=== PATIENT | male | born 1970 | race Caucasian/White ===

== ENCOUNTER 2022-03-03 09:55 | Outpatient (CLI) | payer BC, SELFPAY ==
[2022-03-03 11:35] LABS: Cholesterol* 205 mg/dL (90-199); Glucose* 110 mg/dL (60-115)
[2022-03-03 11:36] LABS: HDL Cholesterol* 37 mg/dL (>=40); LDL Cholesterol Calculated 143 mg/dL (<100); Triglycerides* 124 mg/dL (40-149)
== END 2022-03-03 09:56 | disposition home or self-care (01) ==
PROVIDERS: PCP Family Medicine; Visit Provider Family Medicine
DX: Z13.6 Encounter for screening for cardiovascular disorders (principal); Z13.1 Encounter for screening for diabetes mellitus
CPT/HCPCS: 80061; 82947

== ENCOUNTER 2023-03-04 08:10 | Outpatient (CLI) | payer BC, SELFPAY | END 2023-03-04 08:11 | disposition home or self-care (01) | LOC: NFLDREF 03-05 09:03 | PROVIDERS: PCP Family Medicine; Referring Provider Family Medicine; Visit Provider Family Medicine | DX: Z00.00 Encounter for general adult medical examination without abnormal findings (principal); E78.5 Hyperlipidemia, unspecified | CPT/HCPCS: 80053; 80061 ==

== ENCOUNTER 2024-03-03 08:09 | Outpatient (CLI) | payer BC, SELFPAY | END 2024-03-03 08:10 | disposition home or self-care (01) | LOC: NFLDREF 13:35 | PROVIDERS: PCP Family Medicine; Referring Provider Family Medicine; Visit Provider Family Medicine | DX: E78.5 Hyperlipidemia, unspecified (principal); Z13.1 Encounter for screening for diabetes mellitus | CPT/HCPCS: 80061; 82947 ==

== ENCOUNTER 2024-03-30 08:47 | Outpatient (CLI) | payer BC, SELFPAY ==
--- OUTSIDE RECORDS SUMMARY | 2024-03-30 08:52 | XMS_ITS | Clinical Summary ---
Author Organization [employer] [facility] [employer] Address [place], [place] [address] Care Team Providers Care Office Automation Technician Name Role Phone Ronnie Reynoso MD Primary Care Provider Allergies No known active allergies Medications No known medications Active Problems Problem Noted Date Diagnosed Date JENNA 08/06/2016 AHI- 5, positional 08/24/2016 Diarrhea 07/13/2011 Allergic Rhinitis, Cause Unspecified 02/04/2009 Immunizations Name Administration Dates Next Due Tdap 09/05/2010 Family History Medical History Relation Name Comments Good Health Brother 2 Alcohol/Drug Father alcohol Heart Disease Father CHF Hypertension Father Psychiatric illness Father depressi on Other Mother alzheimer's Relation Name Status Comments Brother 1 Alive Brother 2 Father Alive Mother (Age 66) alzheimers Social History Tobacco Use Types Packs/Day Years Used Date Smoking Tobacco: Never Smokeless Tobacco: Never Tobacco Cessation:Counseling Given: Yes Alcohol Use Standard Drinks/Week Comments Yes 0 (1 standard drink = 0.6 oz pur e alcohol) 2-4 times a month, 1-2 drinks Sex and Gender Information Value Date Recorded Sex Assigned at Not on file Gender Identity Not on file Sexual Orientation Not on file Obstetrics History Last Filed Vital Signs Vital Sign Reading Time Taken Comments Blood Pressure 115/78 08/24/2016 1:44 PM CDT Pulse 82 08/24/2016 1:44 PM CDT Temperature 36.7 ??C (98.1 ??F) 08/24/2016 1:44 PM CD T Respiratory Rate 16 11/05/2014 8:29 AM CDT Oxygen Saturation 95% 08/24/2016 1:44 PM CDT Inhaled Oxygen Concentration - - Weight 85.9 kg (189 lb 6.4 oz) 08/24/2016 1:44 P M CDT Height 174 cm (5' 8.5) 11/05/2014 8:29 AM CDT Body Mass Index 28.38 11/05/2014 8:29 AM CDT Plan of Treatment Health Maintenance Due Date Last Done Comments Depression screening for age 12+ 1983 HIV for age 15-65 1986 BMI (ht and wt on same day) for age 18+ 1989 Hepatitis C screening for ag e 18-79 1989 Colonoscopy through age 75 2016 Lipids for age 45-75 2016 09/24/2010 Tetanus booster 09/05/2020 09/05/2010 Zoster (shingles) series for age 50+ (1 of 2) 2021 COVID-19 vaccine series (2023- season) 2024 Influenza for age 50-64 01/23/2024 Tdap Completed 09/05/2010 Pneumococcal series for age 6-64 Aged Out No longer eligible based on patient's age to complete this topic Procedures Procedure Name Priority Date/Time Associated Diagnosis Comments LIPID PANEL W REFLEX MEASURED LDL Routine 09/24/2010 8:11 AM CDT Screening, lipid from Last 3 Months or Most Recently Relevant to Health Maintenance Results * (ABNORMAL) LIPID PANEL W REFLEX MEASURED LDL (09/24/2010 8:11 AM CDT) CHOLESTEROL,TOTAL 185 110 - 199 mg/dL [facility] TRIGLYCERIDES 102 <150 mg/dL [facility] HDL CHOLESTEROL 36(L) >40 mg/dL [facility] CHOL/HDL RATIO 5.14(H) <4.51 [facility] LDL CHOLESTEROL 129 <131 mg/dL [facility] PATIENT STATUS Fasting [facility] Blood specimen (specimen) BLOOD SPECIMEN / Unknown 09/24/2010 8:11 AM CDT 09/24/2010 8:05 AM CDT Tapan Cortés MD CHEMISTRY [facility] [address] [place] [address] from Last 3 Months or Most Recently Relevant to Health Maintenance Care Teams Office Automation Technician Relationship Specialty Start Date End Date Ronnie Reynoso MD [address] [place] [id number] PCP - General Family Practice 08/24/16
--- NOTE | 2024-03-30 10:10 | W.ANESCHARGE ---
Anesthesia Charges Start Date/Time Anesthesia Start Date: 03/30/24 Anesthesia Start Time: 09:44 Stop Date/Time Anesthesia Stop Date: 03/30/24 Anesthesia Stop Time: 10:09
== END 2024-03-30 08:48 | disposition home or self-care (01) ==
LOC: OP CLINIC 08:49
PROVIDERS: PCP Family Medicine; Visit Provider Surgery
DX: Z12.11 Encounter for screening for malignant neoplasm of colon (principal); Z86.0100 Personal history of colon polyps, unspecified; Z83.719 Family history of colon polyps, unspecified; D12.2 Benign neoplasm of ascending colon; D12.4 Benign neoplasm of descending colon
CPT/HCPCS: 00811; 00812; 45385; 88305; J2704

== ENCOUNTER 2024-12-27 04:45 | Emergency (ER) | payer BC, SELFPAY ==
--- OUTSIDE RECORDS SUMMARY | 2024-12-27 04:47 | XMS_ITS | Clinical Summary ---
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 Gender Identity Not on file Sexual Orientation Not on file Occupation Industry Job Start Date Job End Date Accounting Not on file Not on file Not on file Obstetrics History Last Filed Vital Signs Vital Sign Reading Time Taken Comments Blood Pressure 115/78 08/24/2016 1:44 PM CDT Pulse 82 08/24/2016 1:44 PM CDT Temperature 36.7 C (98.1 F) 08/24/2016 1:44 PM CDT Respiratory Rate 16 11/05/2014 8:29 AM CDT [...] age 18+ 1989 Hepatitis C screening for age 18-79 1989 Hepatitis B series for 19+ ( 1 of 3 - 19+ 3-dose series) 1990 Colonoscopy through age 75 2016 Lipids for age 45-75 2016 09/24/2010 Tetanus booster 09/05/2020 09/05/2010 Pneumococcal series for age 50+ (1 of 1 - PCV) 022 Zoster (shingles) series for age 50+ (1 of 2) 06/03/19 22 COVID-19 vaccine series (1 - 2023- season) 4 Influenza Vaccine (#1) 2025 Procedures Procedure Name Priority Date/Time Associated Diagnosis Comments LIPID PANEL W REFLEX MEASURED LDL Routine 09/24/2010 8:11 AM CDT Screening, lipid from Last 3 Months or Most Recently Relevant to Health Maintenance Results * (ABNORMAL) LIPID PANEL W REFLEX MEASURED LDL (09/24/2010 8:11 AM CDT) CHOLESTEROL,TOTAL 185 110 - 199 mg/dL [facility] TRIGLYCERIDES 102 <150 mg/dL [facility] HDL CHOLESTEROL 36(L) >40 mg/dL [facility] CHOL/HDL RATIO 5.14(H) <4.51 [facility] LDL CHOLESTEROL 129 <131 mg/dL [facility] PATIENT STATUS Fasting [facility] Blood specimen (specimen) BLOOD SPECIMEN / Unknown 09/24/2010 8:11 AM CDT 09/24/2010 8:05 AM CDT us Tapan Cortés MD CHEMISTRY Final Result [facility] [address] [place] [address] from Last 3 Months or Most Recently Relevant to Health Maintenance Insurance [facility] Care Teams Cleaner And Polisher Relationship Specialty Start Date End Date Ronnie Reynoso MD [address] [place] [address] PCP - General Family Practice 08/24/16
[2024-12-27 04:51] VITALS: BP 165/99; PULSE 80; RESP 16; TEMP 36.6; O2SAT 96; BMI 28.1
--- NOTE | 2024-12-27 05:00 | ED_ITS ---
HPI - Abdominal Pain General Time Seen by Provider: 05:00 Date Seen: 12/27/24 Chief Complaint: Abdominal Pain Stated Complaint: right side abdominal pain Time Seen by Provider: 12/27/24 05:00 Source: patient Mode of arrival: ambulatory History of Present Illness HPI narrative: Winston is a 54-year-old male who presents the emergency department for evaluation of abdominal pain. Patient complains of severe right lower quadrant abdominal pain that is described as a constant sharp shooting pain in his lower abdomen with some radiation to his groin. Pain started this morning around 4:30 a.m. and is associated with nausea but no vomiting. Patient denies any fever, chills, chest pain, shortness of breath, back pain, dysuria, hematuria. Patient reports history of kidney stones in the past however states that this pain is significantly worse. No medications prior to arrival. Related Data Home Medications ?Medication ?Instructions ?Recorded ?Confirmed loratadine-pseudoephedrine ER 10 1 tab PO QDAY PRN 12/27/24 mg-240 mg tablet,extended [id number] (Claritin-D 24 Hour) Previous Rx's ?Medication ?Instructions ?Recorded tamsulosin 0.4 mg capsule (Flomax) 0.4 mg PO DAILY #7 caps 12/27/24 Allergies Allergy/AdvReac Type Severity Reaction Status Date / Time house dust mite Allergy Unknown sinisitis Verified 03/08/24 08:52 weed pollen Allergy Unknown sinisitis Verified 03/08/24 08:52 Review of Systems Narrative Past medical history, past surgical history, medications, allergies, family history, and social history were reviewed with the patient. No additional pertinent items. A medically appropriate review of systems was performed with pertinent positives and negatives noted in HPI, all other systems negative. [facility] Medical History (Updated 12/27/24 @ 06:45 by Sophia Diaz MD) Syncope ?R55 - Syncope and collapse (ICD-10) Pneumonia ?J18.9 - Pneumonia, unspecified organism (ICD-10) Low back pain ?M54.50 - Low back pain, unspecified (ICD-10) Calculus of kidney ?N20.0 - Calculus of kidney (ICD-10) Adhesive capsulitis of shoulder ?M75.00 - Adhesive capsulitis of unspecified shoulder (ICD-10) Surgical History (Updated 03/10/22 @ 08:25 by Ronnie Reynoso MD) History of mandibular surgery ?Z98.890 - Other specified postprocedural states (ICD-10) Social History (Updated 03/08/24 @ 09:34 by Amira Love~[facility], [facility]) What is your current living situation?: I presently have a place to live Problems where you live: no known problems In the past 12 months, utilities in danger of being shut off: no In past 12 months, lack of transportation kept you from medical appts, meetings, work, or getting things needed for daily living: no In the past 12 mos, have been you worried that your food would run out before you had money to buy more?: never true In the past 12 mos, the food you bought just didn't last and you didn't have money to buy more?: never true Smoking Status: Never smoker Do you use any of these nicotine containing products: None Second hand tobacco smoke exposure: No How many standard drinks containing alcohol do you have on a typical day: 1 or 2 AUDIT-C Alcohol total score: 0 Non-prescribed substance use: denies use How often does anyone, including family, friends and others, physically hurt you : never How often does anyone, including family, friends and others, insult or talk down to you: never How often does anyone, including family, friends and others, threaten you with harm: never How often does anyone, including family, friends and others, scream or curse at you: never service: No Exam Narrative: Exam Narrative: General: Afebrile, in distress, writhing around secondary to pain HEENT: Normocephalic, atraumatic, conjunctiva normal. MMM Neck: non-tender, supple Cardio: regular rate. regular rhythm Resp: Normal work of breathing, no respiratory distress, lungs clear bilaterally, no wheezing, rhonchi, rales Chest/Back: no visual signs of trauma, no midline tenderness, no CVA tenderness Abdomen: soft, non distension, no tenderness, no peritoneal signs Neuro: alert and fully oriented. CN II-XII grossly intact. Grossly normal strength and sensation in all extremities. MSK: no deformities. Normal range of motion Integumentary/Skin: no rash visualized, normal color Psych: normal affect, normal behavior Const: Vital Signs, click to edit/add: Vital Signs - 24 hr 12/27/24 04:51 12/27/24 06:15 12/27/24 06:16 Temperature 98 F Pulse Rate 91 102 H Pulse Rate [Pulse Oximeter] 80 Respiratory Rate 16 Blood Pressure 143/89 H Blood Pressure [Ri ght Upper Arm] 165/99 H Pulse Oximetry 96 90 90 Oxygen Delivery Me thod Room Air Course Vital Signs Vital signs: Initial Vital Signs Temperature 98 F 12/27/24 04:51 Temperature Source Temporal Artery Scan 12/27/24 04:51 Pulse Rate 80 12/27/24 04:51 Respiratory Rate 16 12/27/24 04:51 Blood Pressure 165/99 H 12/27/24 04:51 Blood Pressure Mean 121 H 12/27/24 04:51 Blood Pressure Position Supine 12/27/24 04:51 Pulse Oximetry 96 12/27/24 04:51 Oxygen Delivery Method Room Air 12/27/24 04:51 Vital Signs Temperature 98 F 12/27/24 04:51 Pulse Rate 80 12/27/24 04:51 Respiratory Rate 16 12/27/24 04:51 Blood Pressure 165/99 H 12/27/24 04:51 Pulse Oximetry 96 12/27/24 04:51 Oxygen Delivery Method Room Air 12/27/24 04:51 Temperature 98 F 12/27/24 04:51 Pulse Rate 102 H 12/27/24 06:16 Respiratory Rate 16 12/27/24 04:51 Blood Pressure 143/89 H 12/27/24 06:16 Pulse Oximetry 90 12/27/24 06:16 Oxygen Delivery Method Room Air 12/27/24 04:51 Medications Administered Medications: Discontinued Medications Generic Name Dose Route Start Last Admin Trade Name Freq PRN Reason Stop Dose Admin Hydromorphone HCl 0.5 mg 12/27/24 05:49 12/27/24 05:52 Hydromorphone 0.5 Mg/0.5 Ml Inj IVP 12/27/24 05:50 0.5 mg ONCE ONE Administration Sodium Chloride 1,000 mls @ 1,000 mls/hr 12/27/24 05:15 12/27/24 05:22 0.9 % Sodium Chloride 1000 Ml IV 12/27/24 06:14 1,000 mls/hr .Q1H KELLY Administration Ketorolac Tromethamine 15 mg 12/27/24 05:09 12/27/24 05:22 Ketorolac 15 Mg/Ml Inj IVP 12/27/24 05:10 15 mg ONCE ONE Administration MDM - Abdominal Pain MDM Narrative Medical decision making narrative: Winston is a 54-year-old male who presents the emergency department for evaluation of abdominal pain. Upon arrival patient is nontoxic appearing, afebrile, in distress secondary to pain. Patient hypertensive upon arrival otherwise hemodynamically stable. Differential diagnosis includes but is not limited to cystitis versus pyelonephritis versus nephrolithiasis versus appendicitis among others. Upon arrival patient was treated with IV Toradol, IV Dilaudid, 1 L IV fluid bolus. Comprehensive labs, urinalysis performed. Comprehensive labs unremarkable with white blood cell count 9.1, hemoglobin 15.5, potassium slightly low at 3.3, lipase just slightly elevated at 356. No transaminitis. Normal bilirubin. Patient with no epigastric or right upper quadrant abdominal pain. Given patient's ongoing pain CT imaging was performed. I personally reviewed interpreted CT scan abdomen pelvis which demonstrated right-sided obstructive uropathy due to a 3.2 mm calcified calculus at the right UVJ junction. There is also a hypodense lesion in the left prostate 1.5 cm recommend follow-up. I discussed results with patient and . Urinalysis with no evidence of acute infection. At this time patient reports significant improvement of his symptoms and pain and feels comfortable discharge home with close outpatient follow-up, pain control, strict return precautions. Also discussed incidental prostate lesion and recommend outpatient follow-up with MRI. Patient and understand agrees the plan. Strict return precautions discussed if high fever, severe pain, persistent vomiting, worsening symptoms. Medical Records Attestation: I reviewed the patient's medical records. Lab Data Attestation: I reviewed the patient's lab results. Labs: Lab Results 12/27/24 Range/Units 05:00 WBC 9.15 (4.50-11.00) K/uL RBC 5.33 (4.30-5.90) m/uL Hgb 15.5 (13.5-17.5) gm/dL Hct 44.8 (37.0-53.0) % MCV 84 (80-100) fL MCH 29 (26-34) pg MCHC 35 (32-36) gm/dL RDW Coeff of Lul 11.7 (11.5-15.5) % Plt Count 394 (140-440) K/uL Neut % (Auto) 55.6 (42.0-72.0) % Lymph % (Auto) 33.4 (20-44) % [place] % (Auto) 7.7 (0.0-11.0) % Eos % (Auto) 2.4 (0.0-7.0) % Baso % (Auto) 0.7 (0.0-3.0) % Neut # (Auto) 5.09 (1.7-7.0) K/uL Lymph # (Auto) 3.06 H (0.90-2.90) K/uL [place] # (Auto) 0.70 (0.00-0.90) K/UL Eos # (Auto) 0.22 (0.00-0.50) K/uL Baso # (Auto) 0.06 (0.00-0.30) K/uL Abs Immat Gran (auto) 0.02 (0.00-0.30) K/uL Imm/Tot Granulo (auto) 0.2 % Sodium 141 (135-149) mmol/L Potassium 3.3 L (3.6-5.1) mmol/L Chloride 105 (96-114) mmol/L Carbon Dioxide 26 (20-32) mmol/L Anion Gap 10 (7-15) mEq/L BUN 19 (7-30) mg/dL Creatinine 1.2 (0.5-1.5) mg/dL Estimated Creat Clear 71.19 Estimated GFR 72 ml/min Glucose 124 H (60-115) mg/dL Calcium 9.3 (8.4-10.6) mg/dL Total Bilirubin 0.3 (0.1-1.5) mg/dL AST 32 (12-35) U/L ALT 24 (4-50) U/L Alkaline Phosphatase 64 (40-150) U/L Total Protein 7.4 (6.0-8.3) g/dL Albumin 4.6 (3.3-5.0) g/dL Lipase 356 H (23-300) U/L Urine Color Yellow (Yellow) Urine Appearance Clear (Clear) Urine pH 7.0 (5.0-8.5) Ur Specific [place] 1.020 (1.000-1.030) Urine Protein 2+ A (Negative) Urine Glucose (UA) Negative (Negative) Urine Ketones Negative (Negative) Urine Blood Negative (Negative) Urine Nitrite Negative (Negative) Urine Bilirubin Negative (Negative) Urine Urobilinogen 0.2 (0.2-1.0) Ur Leukocyte Esterase Trace A (Negative) Urine RBC 0-2 (0-2) Urine WBC 0-2 (0-5) Ur Squamous Epith Cells Few (None-Few) Urine Bacteria None (None) Discharge Plan Discharge Clinical Impression: Ureter, calculus, Abdominal pain, acute, right lower quadrant Patient Disposition: Home, Self-Care Condition: Improved Instructions: Ureteral Stones (ED) Additional Instructions: Please follow-up with your primary care provider in the next 3-5 days for further evaluation and follow-up. Please call to schedule appointment. Please call to follow-up regarding your kidney stone as well as the hypodense lesion in the left prostate that was seen on CT. You may need further evaluation and imaging with an MRI. Please strain your urine. Please rest, drink plenty of fluids. Please alternate taking ibuprofen 600 mg and Tylenol 1000 mg every 6 hours as needed for pain. If you alternate these medications you should be taking something every 3 hours. Please take oxycodone 1 tablet every 4-6 hours as needed for severe pain. Please be careful not to drink alcohol, drive, or operate machinery while on these medications. Please take Flomax once daily as directed. Please return to the emergency department if you develop high fever, severe pain, persistent vomiting, any worsening symptoms. It is a pleasure t aking care of you today. We hope you feel better soon. Prescriptions: New tamsulosin [Flomax] 0.4 mg capsule 0.4 mg PO DAILY Qty: 7 0RF No Action Claritin-D 24 Hour 10-240 mg tablet extended release 24 hr 1 tab PO QDAY PRN Follow Up/Referrals: Ronnie Reynoso MD [Primary Care Provider, Family Practice] Stand Alone Forms: [employer] Info Instructions
[2024-12-27 05:20] LABS: Appearance Urine Clear (Clear)
[2024-12-27 05:21] LABS: Hematocrit 44.8 % (37.0-53.0); Hemoglobin* 15.5 gm/dL (13.5-17.5); Immature Granulocytes Abs Auto 0.02 K/uL (0.00-0.30); Immature Granulocytes Pct Auto 0.2 %; Lymphocytes Absolute Auto 3.06 K/uL (0.90-2.90); Mean Corpuscular HGB Conc 35 gm/dL (32-36); Mean Corpuscular Hemoglobin 29 pg (26-34); Mean Corpuscular Volume 84 fL (80-100); RDW Coefficient of Variation % 11.7 % (11.5-15.5); Red Blood Count 5.33 m/uL (4.30-5.90); White Blood Count* 9.15 K/uL (4.50-11.00)
[2024-12-27 05:23] LABS: Albumin* 4.6 g/dL (3.3-5.0); Chloride* 105 mmol/L (96-114); Sodium* 141 mmol/L (135-149)
[2024-12-27 05:24] LABS: Potassium* 3.3 mmol/L (3.6-5.1); Slide Review Reflex No
[2024-12-27 05:26] LABS: Alanine Aminotransferase* 24 U/L (4-50); Alkaline Phosphatase* 64 U/L (40-150); Anion Gap 10 mEq/L (7-15); Aspartate Amino Transferase* 32 U/L (12-35); Bilirubin Total* 0.3 mg/dL (0.1-1.5); Blood Urea Nitrogen* 19 mg/dL (7-30); Carbon Dioxide* 26 mmol/L (20-32); Creatinine* 1.2 mg/dL (0.5-1.5); Est. Creatinine Clearance* 71.19; Estimated Glomerular Filt Rate 72 ml/min; Total Protein* 7.4 g/dL (6.0-8.3)
[2024-12-27 05:27] LABS: Calcium* 9.3 mg/dL (8.4-10.6); Glucose* 124 mg/dL (60-115)
--- NOTE | 2024-12-27 05:42 | CRLHL7_ITS ---
For Patients: As a result of the Century Cures Act, medical imaging exams and procedure reports are released immediately into your electronic medical record. You may view this report before your referring provider. If you have questions, please contact your health care provider. INDICATION: Abdominal pain COMPARISON: November 12, 2016 TECHNIQUE: CT examination of the abdomen and pelvis was performed following the uneventful intravenous administration of 93 cc of Isovue 370. Thin section axial images were obtained from the lung bases through the pubic symphysis. Oral contrast was not administered. Please note that all CT scans at this facility use dose modulation, iterative reconstruction, and/or weight-based dosing when appropriate to reduce radiation dose to as low as reasonably achievable. FINDINGS: LUNG BASES: The lung bases as visualized appear normal.Basilar atelectasis. Heart size normal the lung bases LIVER/BILIARY SYSTEM:The liver is normal in size and configuration. There is no focal mass and there is no intra- or extra hepatic biliary ductal dilatation.Hepatic steatosis. Normal-appearing gallbladder ADRENALS: Normal KIDNEYS, URETERS and BLADDER:No visible intrarenal calculi on either side. Tiny low-density lesion left kidney too small to characterize but statistically most likely benign. Right-sided obstructive uropathy is noted. This is due to a calcified calculus at the inner orifice at the right ureterovesical junction measuring 3.2 millimeters. The bladder appears normal. SPLEEN:Normal appearance. PANCREAS: Appears normal. RETROPERITONEUM and MESENTERY: There is no mass, adenopathy or aortic aneurysm. Trace atherosclerotic vascular calcification GASTROINTESTINAL SYSTEM: There is no evidence of diverticulitis, colitis, mechanical obstruction, or appendicitis. The small bowel as visualized appears normal.Scattered diverticulosis PELVIS: Prominent prostate. There is a peripheral zone hypodense lesion in the prostate, anterolateral left, measuring 1.5 centimeters. Further evaluation is recommended in the nonacute setting. From an imaging perspective, a prostate MRI should be considered OSSEOUS STRUCTURES and ABDOMINAL WALL: There is an age-appropriate appearance of the osseous structures.No significant abdominal wall defect. OTHER: No free fluid or free air. IMPRESSION: 1. Right-sided obstructive uropathy due to a 3.2 millimeter calcified calculus at the inner orifice of the right ureterovesical junction. No intrarenal calculi observed. 2. Peripheral zone hypodense lesion in the anterolateral left prostate measuring 1.5 centimeters. Follow-up evaluation is recommended at a clinically appropriate time. From an imaging perspective, prostate MRI would be the study of choice. 3. Other incidental nonacute appearing findings as discussed above Please note that all CT scans at this facility use dose modulation, iterative reconstruction, and/or weight-based dosing when appropriate to reduce radiation dose to as low as reasonably achievable. Dictated by Chris Miller MD @ 12/27/2024 6:15:13 AM (Electronically Signed)
[2024-12-27 06:15] VITALS: PULSE 91; O2SAT 90
[2024-12-27 06:16] VITALS: BP 143/89; PULSE 102; O2SAT 90
[2024-12-27 06:17] VITALS: PULSE 98; O2SAT 96
[2024-12-27 06:30] VITALS: PULSE 93; O2SAT 97
[2024-12-27 06:31] VITALS: BP 149/101; PULSE 91; O2SAT 98
[2024-12-27] MEDS: TAMSULOSIN HCL 0.4 MG CAPSULE PO (06:58)
== END 2024-12-27 07:00 | disposition home or self-care (01) ==
PROVIDERS: Emergency Provider Emergency Medicine; PCP Family Medicine
DX: N20.1 Calculus of ureter (principal); R10.31 Right lower quadrant pain
CPT/HCPCS: 36415; 74177; 80053; 81001; 83690; 85025; 87086; 96374; 96375; 99284; 99285; A9270; J1171; J1885; J7030; Q9967

== ENCOUNTER 2025-01-03 11:15 | Outpatient (CLI) | payer BC, SELFPAY | END 2025-01-03 11:16 | disposition home or self-care (01) | LOC: NFLDREF 11:16 | PROVIDERS: PCP Family Medicine; Visit Provider Family Medicine | DX: N20.1 Calculus of ureter (principal) | CPT/HCPCS: 82365 ==

== ENCOUNTER 2025-01-12 07:07 | Outpatient (CLI) | payer BC, SELFPAY ==
--- NOTE | 2025-01-12 07:15 | MR_ITS ---
[facility] [address] [facility] [address] Phone:?[phone] Fax:?[phone] Referring Physician Information: Ronnie Reynoso M.D. [address] [facility] [address] Phone:?[phone] Fax:?[phone] Patient:Yahaira Goldstein D.O.B:?1970 Sex:?Male Phone:?[phone] [facility] MRN:?[id number] Exam Date:?01/12/2025 EXAM: 1.5 OPAL MRI EXAM OF THE PROSTATE WITH AND WITHOUT IV CONTRAST WITH DYNACAD IMAGING CLINICAL INFORMATION: Left hypodense CT prostate lesion COMPARISON: CT abdomen pelvis 12/27/2024 [facility] TECHNICAL INFORMATION: Examination was performed on a 1.5 Opal magnet. High- resolution T1 axial, T2 axial, T2 FSE sagittal and T2 FSE coronal images were obtained through the prostate gland and seminal vesicles. Diffusion images were obtained in the axial plane. 20 mL of Dotarem were injected with dynamic enhanced images of the prostate gland in the axial plane. T1 fat saturation sagittal and coronal images were obtained postinjection. 3-D rendering with interpretation and reporting of MR imaging with postprocessing under concurrent supervision; requiring imaging postprocessing on an independent [employer] workstation. INTERPRETATION: Prostate gland measures 57 x 48 x 47 mm, 58 MLO prostate. Transitional and central zones: Scattered stromal and glandular hyperplasia with small BPH nodules. No focal suspicious (PI RADS 3 or higher score) transitional zone lesion. Peripheral zones: Marked diffuse hypointense T2 signal of the right and left peripheral zone, with exception of anterior horn left peripheral zone, which appears to represent normal prostate tissue, corresponding to CT finding. No suspicious (PI RADS 3 or higher score) peripheral zone lesions are identified. No restricted diffusion or additional abnormality. Pelvis: Prostate capsule, neurovascular bundles and seminal vesicles are unremarkable. CONCLUSION: 1. Diffuse hypointense T2 signal with mild hyperemic flow throughout the right and left peripheral zones, with the exception of the anterior horn left peripheral zone which appears to represent normal prostate tissue. Remainder of peripheral zone consistent with chronic prostatitis. No MR evidence of prostate carcinoma. PI-RADS Scoring System: Score / Criteria ACR PI-RADS Peripheral Zone T2WI 1 = Uniformly hyperintense signal intensity (normal) 2 = Linear or wedge-shaped hypointensity, or diffuse mild hypointensity, usually indistinct margin 3 = Heterogenous signal intensity or non-circumscribed, rounded, moderate hypointensity. Includes others that do not qualify as 2,4,or 5 4 = Circumscribed, homogeneous moderate hypointense focus/mass confined to prostate and < 1.5 cm in greatest dimension 5 = Same as 4 but >=?1.5 cm in greatest dimension or definite extraprostatic extension/invasive behavior ACR PI-RADS Transition Zone T2WI 1 = Normal appearing TZ (rare) or a round, completely encapsulated nodule (typical nodule) 2 = A mostly encapsulated nodule OR a homogeneous circumscribed nodule without encapsulation. (atypical nodule) OR a homogenous midly hypointense area between nodules 3 = Heterogeneous signal intensity with obscured margins. Includes others that do not qualify as 2,4,or 5 4 = Lenticular or non-circumscribed, homogenous, moderately hypointense, and < 1.5 cm in greatest dimension 5 = Same as 4 but >=1.5 cm in greatest dimension or definite extraprostatic extension/invasive behavior ACR PI-RADS Assessment of DWI Peripheral Zone (PZ) or Transition Zone (TZ) 1 = No abnormality (i.e., normal) on ADC and high b-value DWI 2 = Linear/wedge shaped hypotense on ADC and/or linear wedge shaped hyperintense on high b-value DWI 3 = Focal (discrete and different from the background) hypointense on ADC and/or focal hyperintense on high b-value DWI, may be markedly hypointense on ADC or markedly hyperintense on high b-value DWI, but not both 4 = Focal markedly hypontense on ADC and markedly hyperintense on high b-value DWI; < 1.5 cm in greatest dimension 5 = Same as 4 but >=1.5 cm in greatest dimension or definite extraprostatic extension/invasive behavior ACR PI-RADS Assessment for DCE Negative (-) = No early or contemporaneous enhancement, or; diffuse multifocal enhancement NOT corresponding to a focal finding on T2W and/or DWI or focal enhancement corresponding to a lesion demonstrating features of BPH on T2WI (including features of extruded BPH in the PZ) Positive (+) = Focal, and; earlier than or contemporaneous with enhancement of adjacent normal prostatic tissues, and; corresponds to a suspicious finding on T2WI and/or DWI PI-RADS Assessment Categories: Score 1 = very low; clinically significant cancer is highly unlikely to be present Score 2 = low; clinically significant cancer is unlikely to be present Score 3 = intermediate; the presence of clinically significant cancer is equivocal Score 4 = high; clinically significant cancer is likely to be present Score 5 = very high; clinically significant cancer is highly likely to be present [facility] Electronically signed on 01/15/2025 12:42:00 PM by Sandoval Driver M.D.
== END 2025-01-12 07:08 | disposition home or self-care (01) ==
LOC: MRI 07:08
PROVIDERS: PCP Family Medicine; Visit Provider Family Medicine
DX: N42.9 Disorder of prostate, unspecified (principal)
CPT/HCPCS: 72197; A9575

== ENCOUNTER 2025-02-12 08:14 | Outpatient (CLI) | payer BC, SELFPAY | END 2025-02-12 08:15 | disposition home or self-care (01) | LOC: NFLDREF 02-15 07:54 | PROVIDERS: PCP Family Medicine; Referring Provider Family Medicine; Visit Provider Family Medicine | DX: R73.03 Prediabetes (principal); E78.5 Hyperlipidemia, unspecified | CPT/HCPCS: 80061; 82947 ==

== ENCOUNTER 2025-04-20 10:19 | Outpatient (CLI) | payer BC, SELFPAY | END 2025-04-20 10:20 | disposition home or self-care (01) | LOC: NFLDREF 04-26 01:24 | PROVIDERS: PCP Family Medicine; Referring Provider Family Medicine; Visit Provider Family Medicine | DX: N42.9 Disorder of prostate, unspecified (principal) | CPT/HCPCS: G0103 ==